=== PATIENT | female | born 1965 | race Caucasian/White ===

== ENCOUNTER 2018-12-01 09:20 | Day surgery (SDC) | payer OTHER ==
[2018-11-27 15:24] VITALS: BMI 26.5
[~2018-12-01 09:20] MED LIST: LACTATED RINGERS 1,000 ML IV SCH; LIDOCAINE 1% 20 ML VIAL (10MG/ML) FOR IV START INTRADERMA PRN
[2018-12-01 10:14] VITALS: RESP 16; TEMP 97.4
[2018-12-01] MEDS ORDERED: PROPOFOL 10 MG/ML 20 ML VIAL IV ONE (11:09)
--- NOTE | 2018-12-01 11:56 | P.PCN ---
Date of Procedure: 12/01/18 Description of Procedure: BRIEF HISTORY: Patient is a 53-year-old pleasant female scheduled for an elective colonoscopy as a part of evaluation after positive cologard in the outpatient setting. The patient denies any change in bowel habits, blood per rectum, or abdominal pain. No family history of colon cancer. No prior colonoscopies reported. PROCEDURE PERFORMED: Colonoscopy. PREOPERATIVE DIAGNOSIS: Positive cologard, high risk screening for malignant neoplasm of the colon, no prior colonoscopy. ESTIMATED BLOOD LOSS: Minimal. IV sedation per Anesthesia. PROCEDURE: After informed consent was obtained, the patient, was brought into the endoscopy unit. IV sedation was administered by Anesthesia under continuous monitoring. Digital rectal examination was normal. Initially the Olympus CF-190 flexible video colonoscope was then inserted in the rectum, gradually advanced into the cecum without any difficulty. The terminal ileum was intubated and appeared normal. Careful examination was performed as the scope was gradually being withdrawn. Ileocecal valve and the appendiceal orifice were visualized and appeared normal. Prep was excellent. Mucosa of the cecum, ascending colon, transverse colon, descending colon, sigmoid colon, and rectum appeared normal. 2 mm sessile descending colon polyp removed with cold snare polypectomy. Pedunculated 12 mm sigmoid polyp removed with hot snare polypectomy. Moderate left-sided colonic diverticulosis. Mild internal hemorrhoids. Retroflexion was performed in the rectum and no lesions were seen. The patient tolerated the procedure well. IMPRESSION: Sessile descending colon polyp removed with cold snare. Pedunculated sigmoid polyp removed with hot snare. Moderate left-sided diverticulosis. Mild internal hemorrhoids. RECOMMENDATIONS: Findings of this examination were discussed with the patient . Okay to r esume high-fiber diet. Okay to resume medications. We will pathology from polypectomies. Anticipate repeat colonoscopy in 3 years for high risk polyps, pending pathology from polypectomies.
[2018-12-01 12:17] VITALS: BP 132/77; PULSE 58
== END 2018-12-01 13:15 | disposition home or self-care (01) ==
LOC: ORWHC2ENDO 09:20
PROVIDERS: ATTEND Internal Medicine
DX: D12.5 Benign neoplasm of sigmoid colon (principal); K63.5 Polyp of colon; K64.8 Other hemorrhoids; K57.30 Diverticulosis of large intestine without perforation or abscess without bleeding; Z87.891 Personal history of nicotine dependence
CPT/HCPCS: 88305; 45385; J2704